=== PATIENT | male | born 1980 | race Caucasian/White ===

== ENCOUNTER 2018-04-24 19:44 | Emergency (ER) | payer OTHER, MEDICAID ==
[~2018-04-24] VITALS: Ht 185.4 cm; Wt 107.5 kg
[2018-04-24 19:46] VITALS: BP 140/94
[2018-04-24] MEDS: DEXAMETHASONE 10 MG/ML VIAL IM ONE (22:20)
[2018-04-24 22:40] VITALS: BP 122/94
== END 2018-04-24 22:40 | disposition home or self-care (01) ==
LOC: MED 19:44
DX: T67.8XXA Other effects of heat and light, initial encounter (principal); J20.9 Acute bronchitis, unspecified; J45.909 Unspecified asthma, uncomplicated; I10 Essential (primary) hypertension; F41.9 Anxiety disorder, unspecified; X58.XXXA Exposure to other specified factors, initial encounter; Y93.89 Activity, other specified; Y92.89 Other specified places as the place of occurrence of the external cause; Y99.8 Other external cause status
CPT/HCPCS: 96372; 99283; J1100